=== PATIENT | female | born 1995 | race Caucasian/White ===

== ENCOUNTER → 2021-02-25 16:45 | Outpatient (REF) | payer OTHER, SELFPAY | LOC: ANHLAB 16:45 | PROVIDERS: PCP Nurse Practitioner Adult Health; Visit Provider Nurse Practitioner | DX: R22.9 Localized swelling, mass and lump, unspecified (principal) | CPT/HCPCS: 88304 ==

== ENCOUNTER 2022-03-20 08:15 | Outpatient (CLI) | payer OTHER, SELFPAY ==
[2022-03-20 19:49] LABS: Basophils Absolute Auto 0.1 K/mm3 (0.0-0.1); Basophils Percent Auto 1.5 % (0.2-1.2); Eosinophils Absolute Auto 0.3 K/mm3 (0-0.3); Eosinophils Percent Auto 4.8 % (0-4.4); Hematocrit 39.3 % (37.0-47.0); Hemoglobin 12.7 g/dL (12.0-15.0); Immature Granulocyte Absolute 0.01 K/mm3 (0.00-0.031); Immature Granulocyte Percent A 0.2 % (0-0.5); Lymphocytes Percent Auto 27.5 % (18.3-44.2); Mean Corpuscular HGB Conc 32.3 g/dl (32-36); Mean Corpuscular Hemoglobin 30.1 pg (26-34); Mean Corpuscular Volume 93.1 fl (80-100); Mean Platelet Volume 9.2 fl (7.4-10.4); Monocytes Absolute Auto 0.4 K/mm3 (0.1-0.6); Monocytes Percent Auto 6.9 % (2.6-8.5); Neutrophils Absolute Auto 3.4 K/mm3 (1.3-6.7); Neutrophils Percent Auto 59.1 % (45.5-73.1); Platelet Count Result 310 k/mm3 (150-375); Red Blood Count 4.22 M/mm3 (4.2-5.4); Red Cell Distribution Width 12.9 % (11.5-14.5); White Blood Count 5.8 K/mm3 (4.5-10.0)
[2022-03-20 21:32] LABS: Alanine Aminotransferase 46 U/L (6-35); Albumin Level 3.9 g/dL (3.5-5.1); Alkaline Phosphatase 92 U/L (38-126); Anion Gap 5 mmol/L (8-16); Aspartate Amino Transferase 41 U/L (14-36); Bilirubin,Total 0.5 mg/dL (0.2-1.3); Blood Urea Nitrogen 13 mg/dL (7-17); Calcium 8.8 mg/dL (8.4-10.2); Carbon Dioxide 31 mmol/L (22-30); Chloride 102 mmol/L (98-107); Cholesterol 143 mg/dL (0-200); Estimated Glomerular Filt Rate > 60; Glucose 83 mg/dL (65-110); HDL Direct 41 mg/dL; Potassium 4.3 mmol/L (3.4-5.0); Sodium 138 mmol/L (137-145); Triglycerides 122 mg/dL (<150)
[2022-03-20 21:43] LABS: LDL Cholesterol Direct 71 mg/dL
== END 2022-03-20 08:16 | disposition home or self-care (01) ==
LOC: ANHGOSHLAB 08:17
PROVIDERS: PCP Internal Medicine; Visit Provider Clinical Nurse Specialist
DX: J45.909 Unspecified asthma, uncomplicated (principal); Z13.228 Encounter for screening for other metabolic disorders; Z13.220 Encounter for screening for lipoid disorders; E55.9 Vitamin D deficiency, unspecified; F41.9 Anxiety disorder, unspecified
CPT/HCPCS: 36415; 80053; 80061; 82306; 84443; 85025

== ENCOUNTER → 2022-08-01 11:47 | Outpatient (CLI) | payer OTHER, SELFPAY ==
--- NOTE | ~2022-08-01 | US_ITS ---
EXAMINATION: US thyroid DATE: 08/01/2022 12:00 INDICATION: Nontoxic single thyroid nodule. TECHNIQUE: Multiple ultrasound images of the thyroid were obtained. COMPARISON: None. FINDINGS: The right thyroid lobe measures 4.8 x 1.4 x 1.5 cm. The left thyroid lobe measures 4.8 x 1.2 x 1.3 c m. In the right thyroid lobe, there is a 3 mm nodule. IMPRESSION: 1. Small thyroid nodule, likely not clinically significant. No follow-up is needed. Reviewed, dictated and finalized at location A. IMPRESSION: 1. Small thyroid nodule, likely not clinically significant. No follow-up is nee ded.
== END ==
PROVIDERS: PCP Internal Medicine; Visit Provider Clinical Nurse Specialist
DX: E04.1 Nontoxic single thyroid nodule (principal)
CPT/HCPCS: 76536

== ENCOUNTER 2022-10-07 08:00 | Outpatient (RCR) | payer OTHER, SELFPAY ==
--- NOTE | 2022-09-10 09:53 | OPREHPOC ---
Outpatient Therapy Plan of Care This is a Multidisciplinary Plan of Care that may contain components documented by all disciplines (PT, OT, and ST.) PT Problem 1 PT Problem #1 Knowledge Deficit PT Goal 1 Goal Pt to be IND with issued HEP Target Visit 8 PT Problem 2 PT Problem #2 Pain PT Goal 1 Goal Pt to report low back pain no greater than 3/10 in the last week. 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 Target Visit 8 PT Goal 2 Goal Pt to demonstrate a floor to stand transfer without an increase in back pain. Target Visit 8
--- NOTE | 2022-09-10 09:53 | PTOPEVAL1 ---
Assessment and note entered by Luis Light, PT, DPT Evaluation Information Assessment Status Evaluation Diagnosis dorsalgia Onset 2-3 months Subjective Information Pt states she has very mild back pain for years when doing more laboring tasks. 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 She reports R sided back pain and pain will intermittently shoot down her leg. She declines any pain at rest. Reported Pain Level Pain Score 0: Self Report Assessment PT Clinical Summary Molly presents to therapy today for her initial evaluation with a diagnosis of dorsalgia. Today she demonstrates lumbar ROM that is WNL and mostly pain free. Based of her subjective history her pain seems to be directly related to her new job. Pt demonstrates poor lifting and body mechanics during a functional movement assessment. Skilled therapy services are indicated to improve core strength and spinal stability, to improve body mechanics, to manage pain, and to return to work without any functional limitations. Plan of Care Interventions Electrical Stimulation,Gait Training,Hot Pack/Cold Pack,Manual Therapy,Neuro Re-education,Patient/ Caregiver Educati,Therapeutic Activities, Therapeutic Exercise PT Services Indicated Yes Treatment Frequency and 1-2x/wk for 4 wks Duration These treatments will address the objective and functional deficits as defined above. The patient will be advanced safely and appropriately in order for the patient to progress towards his/her prior level of function. Additional exercises will be introduced and as well as a comprehensive home exercise program upon discharge, if needed, ?to ensure carryover of functional gains achieved in the clinic. This treatment plan has been reviewed and agreement upon by the patient.
--- NOTE | 2022-09-19 11:44 | PCPTNOTE ---
On 09/19/22, the student Carmen Guzmán, provided care and completed [employer] documentation on this patient. I have reviewed the student's documentation and agree with the findings.
--- NOTE | 2022-10-07 08:59 | PTOPDC ---
Assessment and note entered by Luis Light, PT, DPT Evaluation Information Assessment Status Discharge Diagnosis dorsalgia Onset 2-3 months Subjective Information Pt states she was turning to get on the couch and felt a pop in her hip/pelvis. Since then she has felt a pain in her hip and slightly in her low back . She states she attempted to go for a short walk yesterday and her back felt achy, burning, and tight after just a few minutes of walking. 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 Reported Pain Level Pain Score 4: Self Report Assessment PT Clinical Summary Molly presents to therapy today for her progress report following 7 visits of skilled therapy to treat her diagnosis of dorsalgia. Today she demonstrates lumbar ROM that is WNL. 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 She reports a mild pain during prolonged walking, she was educated on exercise progression. She no longer requires skilled therapy services and will be discharged at this time. Plan of Care PT Services Indicated Yes
== END 2022-10-07 10:58 | disposition home or self-care (01) ==
LOC: ANHGOSHPT 08:00
PROVIDERS: PCP Internal Medicine; Visit Provider Clinical Nurse Specialist
DX: M54.9 Dorsalgia, unspecified (principal)
CPT/HCPCS: 97110; 97112; 97140; 97161; 97530

== ENCOUNTER 2022-12-09 10:24 | Emergency (ER) | payer OTHER, SELFPAY ==
[2022-12-09 10:30] VITALS: PULSE 88; RESP 16; O2SAT 97
--- NOTE | 2022-12-09 10:32 | ED.ASTHMA ---
HPI - Asthma General Chief Complaint: Asthma Stated Complaint: Asthma attack Source: patient and RN notes reviewed Mode of arrival: ambulatory Limitations: no limitations History of Present Illness HPI Narrative: Patient is a 27-year-old female who presents to the [facility] with complaints of shortness of breath only thing. Patient has known history of asthma. She states that her symptoms developed on Thursday. Patient also endorses an infrequent nonproductive cough. States that she had frequent sneezing last night. She states that when her allergies act up, she usually has an exacerbation of her asthma shortly after. She states that she has been using her albuterol inhaler at home every 3-4 hours with minimal relief. States that she gets relief from the inhaler for about 2 hours and then the shortness of breath resumes. She has auditory wheezes upon [facility] arrival. However, she does not appear in acute distress. Related Data Home Medications Medication Instructions Recorded Confirmed albuterol sulfate 90 mcg/actuation g inhalation 12/18/20 11/14/22 aerosol inhaler Allergies Allergy/AdvReac Type Severity Reaction Status Date / Time No Known Allergies Allergy Verified 11/13/22 13:36 Review of Systems Review of Systems: CONSTITUTIONAL: Denies fever, chills, or sweats. EYES: Denies visual changes, redness, or discharge. ENT: Denies otalgia and sore throat CARDIOVASCULAR: Denies chest pain, palpitations, or edema. RESPIRATORY: Reports cough or dyspnea. Reports wheezing. GASTROINTESTINAL: Denies abdominal pain, nausea, vomiting, or diarrhea. GENITOURINARY: Denies dysuria or hematuria. SKIN: Denies rash or itching. MUSCULOSKELETAL: Denies back pain, joint pain, or myalgia. NEUROLOGIC: Denies headache, numbness, or weakness. Pertinent positives per HPI. [facility] Past Medical History Medical History Obesity Surgical History Surgical History History of tonsillectomy Social History Social History Social History: Caffeine-daily Smoking status: Never smoker Alcohol intake: current Alcohol use details: rarely Substance use: never Substance use type: does not use Current Housing: Decline to Answer Concerned About Future Housing: Decline to Answer Difficulty Paying Gas/Electric Bills: Decline to Answer Difficulty Paying for Meds: Decline to Answer Currently Unemployed: Decline to Answer Education: Decline to Answer Difficulty w/ Childcare or Family Care: Decline to Answer Living arrangements: with family Comments At the time of my signature, I reviewed and agree with the nursing past medical, surgical, social, and family history. There is no relevant family history pertinent to the patient complaint. Exam Narrative: GENERAL: This is a well-nourished, well-developed patient, in no apparent distress. HEAD: normocephalic, atraumatic. EYES: Sclera clear/white. Vision is grossly intact. EARS: External ears normal. Hearing grossly intact. NOSE: External nose normal with no obvious nasal discharge, nares without redness, no rhinorrhea. THROAT: Mucous membranes moist, posterior pharynx clear. NECK: Neck supple, non-tender without lymphadenopathy, masses or thyromegaly. CARDIOVASCULAR: Regular rate and rhythm without murmurs, gallops, or rubs. RESPIRATORY: Bilateral diffuse wheezing noted. GASTROINTESTINAL: Abdomen soft, non-tender, nondistended. Bowel sounds are active. No hepato-splenomegaly, or palpable masses. No guarding. SKIN: warm, intact with no suspicious lesions or rash, good texture and turgor. NEURO: awake, alert, and oriented to person, place and time. There were no obvious focal neurologic abnormalities. Course Course Level of Care: Express Care Visit Vital Signs Vital signs: Vital Si
[2022-12-09 10:33] VITALS: BP 112/68; PULSE 88; RESP 16; TEMP 37.4; O2SAT 97
[2022-12-09] MEDS: methylPREDNISolone SOD SUCC 125 MG VIAL IM (10:56)
[2022-12-09] MEDS: ALBUTEROL SULFATE NEB 2.5 MG/3 ML INH INHALATION (10:56)
[2022-12-09 11:15] VITALS: PULSE 92; RESP 16; O2SAT 98
== END 2022-12-09 11:20 | disposition home or self-care (01) ==
PROVIDERS: Emergency Provider Nurse Practitioner; PCP Clinical Nurse Specialist
DX: J45.21 Mild intermittent asthma with (acute) exacerbation (principal); E66.9 Obesity, unspecified; Z68.42 Body mass index [BMI] 45.0-49.9, adult
CPT/HCPCS: 94640; 96372; 99213; G0463; J2930

== ENCOUNTER 2023-11-26 13:58 | Outpatient (CLI) | payer OTHER, SELFPAY ==
[2023-11-26 15:02] LABS: Basophils Absolute Auto 0.1 K/mm3 (0.0-0.1); Basophils Percent Auto 1.2 % (0.2-1.2); Eosinophils Absolute Auto 0.2 K/mm3 (0-0.3); Eosinophils Percent Auto 3.3 % (0-4.4); Hematocrit 38.5 % (37.0-47.0); Hemoglobin 12.8 g/dL (12.0-15.0); Immature Granulocyte Absolute 0.01 K/mm3 (0.00-0.031); Immature Granulocyte Percent A 0.1 % (0-0.5); Lymphocytes Absolute Auto 1.89 K/mm3 (0.9-3.2); Lymphocytes Percent Auto 25.8 % (18.3-44.2); Mean Corpuscular HGB Conc 33.2 g/dl (32-36); Mean Corpuscular Hemoglobin 30.1 pg (26-34); Mean Corpuscular Volume 90.6 fl (80-100); Mean Platelet Volume 9.1 fl (7.4-10.4); Monocytes Absolute Auto 0.5 K/mm3 (0.1-0.6); Monocytes Percent Auto 6.7 % (2.6-8.5); Neutrophils Absolute Auto 4.6 K/mm3 (1.3-6.7); Neutrophils Percent Auto 62.9 % (45.5-73.1); Platelet Count Result 317 k/mm3 (150-375); Red Blood Count 4.25 M/mm3 (4.2-5.4); Red Cell Distribution Width 12.9 % (11.5-14.5); White Blood Count 7.3 K/mm3 (4.5-10.0)
[2023-11-26 15:24] LABS: Alanine Aminotransferase 108 U/L (6-35); Albumin Level 4.3 g/dL (3.5-5.1); Alkaline Phosphatase 101 U/L (38-126); Anion Gap 7 mmol/L (4-12); Aspartate Amino Transferase 92 U/L (14-36); Bilirubin,Total 0.7 mg/dL (0.2-1.3); Blood Urea Nitrogen 19 mg/dL (7-17); Calcium 9.1 mg/dL (8.4-10.2); Carbon Dioxide 29 mmol/L (22-30); Chloride 100 mmol/L (98-107); Estimated Glomerular Filt Rate > 60; Glucose 90 mg/dL (65-110); Potassium 3.9 mmol/L (3.4-5.0); Sodium 136 mmol/L (137-145)
[2023-11-26 20:20] LABS: Vitamin D 25 Hydroxy 27.4 ng/mL
== END 2023-11-26 13:59 | disposition home or self-care (01) ==
LOC: ANHGOSHLAB 14:00
PROVIDERS: PCP Clinical Nurse Specialist; Visit Provider Clinical Nurse Specialist
DX: F41.9 Anxiety disorder, unspecified (principal); E55.9 Vitamin D deficiency, unspecified; Z13.228 Encounter for screening for other metabolic disorders
CPT/HCPCS: 36415; 80053; 82306; 84443; 85025

== ENCOUNTER 2023-12-22 16:57 | Emergency (ER) | payer OTHER, SELFPAY ==
[2023-12-22 17:11] VITALS: BP 113/68; PULSE 82; RESP 16; TEMP 36.5; O2SAT 100
--- NOTE | 2023-12-22 17:26 | ED.ASTHMA ---
HPI - Asthma General Chief Complaint: Asthma Stated Complaint: Breathing Problems Time Seen by Provider: 12/22/23 17:15 Source: patient Mode of arrival: ambulatory Limitations: no limitations History of Present Illness HPI Narrative: Molly is a 28-year-old female patient presenting to the clinic today with complaints of possible asthma exacerbation. She reports over the last week she has had some chest tightness and shortness of breath. Having difficulty taking a deep breath in. Has been using albuterol inhaler and nebulizer solution. States the cough is productive however she does not know the color of the sputum. Denies any fever, chills, or body aches. Oxygenation is 100% on room air patient does not appear to be in any distress at this time. Related Data Allergies Allergy/AdvReac Type Severity Reaction Status Date / Time No Known Allergies Allergy Verified 11/26/23 12:56 Review of Systems Review of Systems: Pertinent positives per HPI. Patient denies any fever, chills, rash, headache, visual changes, dizziness, chest pain, palpitations, nausea, vomiting, diarrhea, constipation, abdominal pain, or any urinary issues. PMFSH Past Medical History Medical History Obesity Surgical History Surgical History History of tonsillectomy Social History Social History Social History: Caffeine-daily Smoking status: Never smoker Alcohol intake: current Alcohol use details: rarely Substance use: never Substance use type: does not use Living arrangements: with family Comments At the time of my signature, I reviewed and agree with the nursing past medical, surgical, social, and family history. There is no relevant family history pertinent to the patient complaint. Exam Narrative: General: Well-developed, well nourished, in no apparent distress Head: Normocephalic, atraumatic Eyes: Pupils equally round and reactive to light bilaterally, EOM intact, sclera and conjunctive clear, no discharge, lids normal Ears: TMs intact and clear, ear canals clear, no drainage, grossly hearing normal. Nose: Nares patent, clear nasal discharge, no inflammation, no sinus tenderness. Mouth: Oral pharynx without lesions or masses, good dentition, MMM. Neck: Supple, trachea midline, no enlargement of anterior or posterior cervical nodes, no thyroid masses or goiter palpable. Cardio: Regular rate and rhythm, s1 and s2 normal, no murmur appreciated. Resp: Expiratory wheezing, no rhonchi, rales, or rubs Course Course Emergency Course: Portions of this record may have been created with voice recognition software. Level of Care: Express Care Visit Vital Signs Vital signs: Vital Signs Temperature 36.5 C 12/22/23 17:11 Pulse Rate 82 12/22/23 17:11 Respiratory Rate 16 12/22/23 17:11 Blood Pressure 113/68 12/22/23 17:11 Pulse Oximetry 100 12/22/23 17:11 Temperature 36.5 C 12/22/23 17:11 Pulse Rate 82 12/22/23 17:11 Respiratory Rate 16 12/22/23 17:11 Blood Pressure 113/68 12/22/23 17:11 Pulse Oximetry 100 12/22/23 17:11 Vital signs reviewed MDM - Asthma MDM Narrative Medical decision making narrative: At the time of visit patient is resting comfortably on the exam table. Patient appears to be nontoxic. Medications: DuoNeb Hand-held neb treatment was given in the clinic today Plan: I suspect patient has asthma exacerbation. Prescription for albuterol inhaler, albuterol nebulizer solution, and prednisone was sent to the pharmacy. Supportive measures were discussed with the patient and they voiced understanding discharge instructions and agrees to treatment plan. Return precautions reviewed Differential Diagnosis Differential diagnosis: Likely Acute exacerbation, Status asthmaticus, Acut
[2023-12-22] MEDS: IPRATROPIUM 0.5 MG/ALBUTEROL SULFATE 2.5 MG AMPUL.NEB 3 ML INHALATION (17:53)
[2023-12-22 18:00] VITALS: PULSE 86; RESP 19; O2SAT 97
== END 2023-12-22 18:05 | disposition home or self-care (01) ==
PROVIDERS: Emergency Provider Nurse Practitioner Family; PCP Clinical Nurse Specialist
DX: J45.901 Unspecified asthma with (acute) exacerbation (principal); E66.9 Obesity, unspecified; Z68.42 Body mass index [BMI] 45.0-49.9, adult
CPT/HCPCS: 94640; 99213; G0463

== ENCOUNTER 2024-05-31 14:45 | Outpatient (CLI) | payer OTHER, SELFPAY ==
--- NOTE | ~2024-05-31 | US_ITS ---
Thyroid ultrasound. Clinical History: Thyroid nodule COMPARISON: 08/01/2022 Findings: Real-time sonography of the thyroid gland was performed. The right lobe measures 4.8 x 2.0 x 1.4 cm. The left lobe measures 5.0 x 1.5 x 1.4 cm. The isthmus is 4 mm in AP diameter. There is a 4 mm cystic nodule in the right mid to lower pole. Impression: No significant abnormality. 4 mm cystic nodule in the right thyroid lobe, benign.. Reviewed, dictated and finalized at location . Impression: No significant abnormality. 4 mm cystic nodule in the right thyroid lobe, clement romo
== END 2024-05-31 14:46 | disposition home or self-care (01) ==
LOC: GOSHIMG 14:46
PROVIDERS: PCP Clinical Nurse Specialist; Visit Provider Clinical Nurse Specialist
DX: E04.1 Nontoxic single thyroid nodule (principal)
CPT/HCPCS: 76536

== ENCOUNTER 2024-10-25 08:05 | Outpatient (CLI) | payer OTHER, SELFPAY ==
--- OUTSIDE RECORDS SUMMARY | 2024-10-25 08:08 | XMS_ITS | Clinical Summary ---
Author Organization [facility] [address] Address [address] [place] [address] Care Team Providers Care Field Handyman Name Role Phone Kerri Tanner NP Primary Care Provider Allergies No known active allergies Medications albuterol sulfate 90 mcg/actuation aerosol powdr breath activated Inhale 180 mcg as needed. Active FLUoxetine 10 mg capsule Take 1 tablet/caps ule (10 mg total) by mouth daily 01/22/2024 Active SEMAGLUTIDE SUBQ Inject under the skin once a week Active Active Problems Problem Noted Date Diagnosed Date PAC (premature atrial contraction) 11/14/2021 BMI 39.0-39.9,adult 08/20/2020 Dietary counseling 08/08/2019 Exercise counseling 08/08/2019 Palpitations 03/09/2017 Assessment & Plan (04/20/2017 10:05 AM SATELLITE TV TECHNICIAN): Fourteen day event monitor shows premature atrial contractions as well as some premature ventricular contractions. Symptoms are tolerable and not interfering with lifestyle. Discussed with patient options for either observation or starting her on some beta-blockers. Patient chose to at this time observation. Echocardiogram looks unremarkable Assessment & Plan (03/09/2017 12:25 PM SATELLITE TV TECHNICIAN): Her EKG is normal. At this time I will order an echocardiogram to assess cardiac function and exclude ASD or any structural heart disease. Also will order a 2D week event monitor to rule out arrhythmias. Surgical History Surgery Date Site/Laterality Comments TONSILLECTOMY Medical History Medical History Date Comments Asthma Family History Medical History Relation Name Comments No Known Problems Brother No Known Problems Father Diabetes Maternal Grandfather Charlie 3 Depression Maternal Grandmother Lamar No Known Problems Mother Colon cancer Paternal Grandfather Starcasie Depression Paternal Grandfather Starly Stroke Paternal Grandfather Starly Colon cancer Paternal Grandmother Relation Name Status Comments Brother Alive Father Alive Maternal Grandfather Charlie 3 Alive Maternal Grandmother Lamar Mother Alive Paternal Grandfather Starcasie Paternal Grandmother Social History Tobacco Use Types Packs/Day Years Used Date Smoking Tobacco: Never Smokeless Tobacco: Never Tobacco Cessation:Counseling Given: Not Answered Alcohol Use Standard Drinks/Week Comments Yes 2 (1 standard drink = 0.6 oz pur e alcohol) monthly Comments Unknown Sex and Gender Information Value Date Recorded Sex Assigned at Not on file Legal Sex Female 10:50 PM SATELLITE TV TECHNICIAN Gender Identity Not on file Sexual Orientation Not on file Obstetrics History Last Filed Vital Signs Vital Sign Reading Time Taken Comments Blood Pressure 108/70 02/01/2024 9:00 AM SATELLITE TV TECHNICIAN Pulse 81 02/01/2024 9:00 AM SATELLITE TV TECHNICIAN Temperature - - Respiratory Rate - - Oxygen Saturation 95% 02/01/2024 9:00 AM SATELLITE TV TECHNICIAN Inhaled Oxygen Concentration - - Weight 129.7 kg (286 lb) 02/01/2024 9:00 AM SATELLITE TV TECHNICIAN Height 162.6 cm (5' 4) 02/01/2024 9:00 AM SATELLITE TV TECHNICIAN Body Mass Index 49.09 02/01/2024 9:00 AM SATELLITE TV TECHNICIAN Plan of Treatment Health Maintenance Due Date Last Done Comments Cervical Cancer Screening 1995 Depression Screening 1995 Hepatitis C Screening 1995 Varicella Vaccines (1 of 2 - 13+ 2-dose series) 11/03/2008 Hepatitis B Screening 11/03/2013 Regular Well Visit/Exam 18-64 11/03/2013 HPV Vaccines (1 - 3-dose SCD M series) 11/03/2022 Covid-19 Vaccine ( - 2023-2 5 season) 2023 01/01/2021, 12/04/2020 Influenza Vaccine (#1) 2024 , 12/16/2018 DTaP/Tdap/Td Vaccine (2 - Td or Tdap) 05/10/2033 05/11/2023 Pneumococcal vaccine <65 Aged Out No longer eligible based on patient's age to complete this topic Insurance [facility] Care Teams Field Handyman Relationship Specialty Start Date End Date Kerri Tanner NP PCP - General Cardiovascular Disease 07/15/22
[2024-10-25 08:21] LABS: Hematocrit 38.5 % (37.0-47.0); Hemoglobin 12.6 g/dL (12.0-15.0); Immature Granulocyte Percent A 0.4 % (0-0.5); Lymphocytes Absolute Auto 1.57 K/mm3 (0.9-3.2); Mean Corpuscular HGB Conc 32.7 g/dl (32-36); Mean Corpuscular Hemoglobin 29.5 pg (26-34); Mean Corpuscular Volume 90.2 fl (80-100); Nucleated Red Blood Cells Absolute Auto 0.000 K/mm3 (0.0-0.012); Nucleated Red Blood Cells Perc 0.0 % (0.0-0.2); Platelet Count Result 299 k/mm3 (150-375); Red Blood Count 4.27 M/mm3 (4.2-5.4); White Blood Count 5.4 K/mm3 (4.5-10.0)
[2024-10-25 09:02] LABS: Alanine Aminotransferase 69 U/L (6-35); Albumin Level 4.1 g/dL (3.5-5.1); Alkaline Phosphatase 95 U/L (38-126); Anion Gap 6 mmol/L (4-12); Aspartate Amino Transferase 43 U/L (14-36); Bilirubin,Total 0.8 mg/dL (0.2-1.3); Blood Urea Nitrogen 13 mg/dL (7-17); Calcium 9.1 mg/dL (8.4-10.2); Carbon Dioxide 27 mmol/L (22-30); Chloride 103 mmol/L (98-107); Cholesterol 136 mg/dL (0-200); Estimated Glomerular Filt Rate > 60; Glucose 93 mg/dL (65-110); HDL Direct 34 mg/dL; Potassium 4.2 mmol/L (3.4-5.0); Sodium 136 mmol/L (137-145); Total Protein 7.6 g/dL (6.3-8.2); Triglycerides 84 mg/dL (<150)
[2024-10-25 09:06] LABS: Hemoglobin A1C 4.8 % (<5.7)
[2024-10-25 09:17] LABS: Iron 103 ug/dL (37-170)
[2024-10-25 09:26] LABS: Percent Iron Saturation 35 % (20-50)
[2024-10-25 09:37] LABS: Thyroid Stimulating Hormone 1.620 uIU/mL (0.465-4.680)
[2024-10-25 11:04] LABS: Ferritin 67.20 ng/mL (6.24-137)
== END 2024-10-25 08:06 | disposition home or self-care (01) ==
LOC: ANHLAB 08:06
PROVIDERS: PCP Clinical Nurse Specialist; Visit Provider Clinical Nurse Specialist
DX: Z13.228 Encounter for screening for other metabolic disorders (principal); E55.9 Vitamin D deficiency, unspecified; E04.1 Nontoxic single thyroid nodule; F41.9 Anxiety disorder, unspecified; R74.01 Elevation of levels of liver transaminase levels; J45.21 Mild intermittent asthma with (acute) exacerbation; R10.9 Unspecified abdominal pain; R74.8 Abnormal levels of other serum enzymes
CPT/HCPCS: 36415; 80053; 80061; 82306; 82728; 83036; 83540; 83550; 84443; 85025

== ENCOUNTER 2024-10-26 09:59 | Outpatient (CLI) | payer OTHER, SELFPAY ==
--- NOTE | ~2024-10-26 | CT_ITS ---
EXAMINATION: CT abdomen pelvis w con DATE: 10/26/2024 10:29 INDICATION: Periumbilical pain TECHNIQUE: Computed tomography (CT) of the abdomen and pelvis was performed with intravenous contrast. The dose-length product was 1295.44 mGy-cm. COMPARISON: None. FINDINGS: Fatty liver. Spleen, adrenal glands, pancreas and gallbladder are unremarkable. Kidneys are unremarkable. Abdominal aorta is not aneurysmal. No enlarged lymph nodes identified in the abdomen. No dilated bowel loops. No appendicitis. Moderate amount of stool.There is a 2.2 cm low-density lesion in the right ovary possibly a hemorrhagic ovarian cyst. Other etiologies are possible. No free fluid in the abdomen or pelvis. No compression fracture in the visualized spine. IMPRESSION: 1. No CT evidence for acute appendicitis. 2. There is a 2.2 cm low-density lesion in the right ovary possibly a hemorrhagic ovarian cyst. Other etiologies are possible. A pelvic ultrasound is suggested. 3. Fatty liver. Reviewed, dictated and finalized at location Q. IMPRESSION: 1. No CT evidence for acute appendicitis. 2. There is a 2.2 cm low-density lesion in the right ovary possibly a hemorrhag ic ovarian cyst. Other etiologies are possible. A pelvic ultrasound is suggeste d. 3. Fatty liver.
--- OUTSIDE RECORDS SUMMARY | 2024-10-26 10:24 | XMS_ITS | Clinical Summary ---
Author Organization [facility] [address] Address [address] [place] [address] Care Team Providers Care Sports Equipment Repairer Name Role Phone Kerri Tanner NP Primary [...] 03/09/2017 Assessment & Plan (04/20/2017 10:05 AM DIETETIC TECHNICIAN): Fourteen day event monitor shows premature atrial contractions as well as some premature ventricular contractions. Symptoms are tolerable and not interfering with lifestyle. Discussed with patient options for either observation or starting her on some beta-blockers. Patient chose to at this time observation. Echocardiogram looks unremarkable Assessment & Plan (03/09/2017 12:25 PM DIETETIC TECHNICIAN): Her EKG is normal. At this [...] on file Legal Sex Female 10:50 PM DIETETIC TECHNICIAN Gender Identity Not on file Sexual Orientation Not on file Obstetrics History Last Filed Vital Signs Vital Sign Reading Time Taken Comments Blood Pressure 108/70 02/01/2024 9:00 AM DIETETIC TECHNICIAN Pulse 81 02/01/2024 9:00 AM DIETETIC TECHNICIAN Temperature - - Respiratory Rate - - Oxygen Saturation 95% 02/01/2024 9:00 AM DIETETIC TECHNICIAN Inhaled Oxygen Concentration - - Weight 129.7 kg (286 lb) 02/01/2024 9:00 AM DIETETIC TECHNICIAN Height 162.6 cm (5' 4) 02/01/2024 9:00 AM DIETETIC TECHNICIAN Body Mass Index 49.09 02/01/2024 9:00 AM DIETETIC TECHNICIAN Plan of Treatment Health Maintenance Due [...] patient's age to complete this topic Insurance [facility] Care Teams Sports Equipment Repairer Relationship Specialty Start Date End Date Kerri Tanner NP PCP - General Cardiovascular Disease 07/15/22
== END 2024-10-26 10:00 | disposition home or self-care (01) ==
PROVIDERS: PCP Clinical Nurse Specialist; Visit Provider Clinical Nurse Specialist
DX: R10.33 Periumbilical pain (principal); R74.01 Elevation of levels of liver transaminase levels; K76.0 Fatty (change of) liver, not elsewhere classified
CPT/HCPCS: 74177; Q9967

== ENCOUNTER 2024-11-04 12:50 | Outpatient (CLI) | payer OTHER, SELFPAY ==
--- NOTE | ~2024-11-04 | US_ITS ---
EXAMINATION: US pelvic complete w TV DATE: 11/04/2024 13:14 INDICATION: Ovarian cyst. Pelvic pain. TECHNIQUE: Multiple transabdominal and endovaginal sonographic images of the pelvis were obtained. COMPARISON: 10/26/2024 FINDINGS: The uterus measures 7.2 x 3.5 x 3.8 cm. The endometrial complex measures 12 mm in thickness. The right ovary measures 3.0 x 2.4 x 2.2 cm. 1.6 cm anechoic cyst/follicle in the right ovary. The left ovary measures 2.1 x 1.8 x 2.1 cm. Vascular flow identified in both ovaries on color Doppler. There is no free fluid in the pelvis. IMPRESSION: 1. Unremarkable pelvic ultrasound. Reviewed, dictated and finalized at location A.
== END 2024-11-04 12:51 | disposition home or self-care (01) ==
LOC: MICIMG 12:52
PROVIDERS: PCP Clinical Nurse Specialist; Visit Provider Clinical Nurse Specialist
DX: N83.209 Unspecified ovarian cyst, unspecified side (principal)
CPT/HCPCS: 76830; 76856